=== PATIENT | male | born 1985 | race Caucasian/White ===

== ENCOUNTER 2020-10-24 00:58 | Inpatient (IN) ==
[2020-10-24] MEDS ORDERED: MULTI-VITAMIN INFUSION 10 ML, THIAMINE HCL 100 MG, FOLIC ACID 1 MG in SODIUM CHLORIDE 0... IV ONE (01:11)
[2020-10-24] MEDS ORDERED: LORazepam 1 MG/2 ML VIAL IV STA (01:11)
[2020-10-24] MEDS ORDERED: SODIUM CHLORIDE 0.9% 1000ML 1,000 ML IV ONE (01:11)
--- NOTE | 2020-10-24 01:19 | Emergency Department Note ---
Impression & Plan Pancreatitis, alcoholic, acute, Alcohol withdrawal, Abnormal LFTs, Conjunctivitis of left eye, Thrombocytopenia, Alcoholic hepatitis ED Provider Note Name: CHRISTIANA MULLEN Age: 35 Sex: M Arrives Via: Ambulance Informant: Patient, EMS ED Provider: Rayshawn Johnson MD Chief Complaint: Alcohol withdrawal Impression: Pancreatitis, Alcoholic, Acute Alcohol Withdrawal Abnormal LFTs Conjunctivitis of left eye Thrombocytopenia Alcoholic hepatitis Medical Decision Makin yr old male who admits ETOH use almost every day since 18 yrs old arrives with early DT with severe tremors and weakness. After 2nd dose Ativan IV much calmer. Given IV thiamine/folate/banana bag along with another 1 L NSS as he is clearly quite dehydrated. CT head obtained due to weakness, falls, etoh use which is negative. Labs with elevated lipase consistent with the vague LUQ ab dominal pain post prandial recently, though given miniaml TTP, no hypotension seems reasonable holding off on imaging for the moment. Labs with low platelets and elevated lfts consistent with alcoholic hepatitis and chronic drinking. No seizure/hallucinations while here. Given findings clearly will need to come in before rehab can be considered. He as quite significant conjunctivitis left eye with large corneal ulcer thus will start erythromycin ointment. Patient calm, cooperative and agrees with plan for hospitalization. Unclear etiology of ant/lat ST depressions with negative drop though may be alcoholic related, fortunately patient without sob, chest pain nor acs symptoms. Triage/Nursing Notes reviewed by Me Differentials:Infection, dehydration, metabolic abnormality, hypo/hyperglycemia, electrolyte disturbance, anemia, hypoxia, cardiac sources, intracerebral event, toxicologic, neurologic, as well as other pathologies. Vital Signs: reviewed and remarkable for HTN, Tachy Interventions: Saline lock, banana bag iv, nss bolus iv, ativan 1 mg IV Labs:Reviewed and remarkable for low plts, negative etoh, elevated lfts, elevated lipase Imaging:[facility] Radiologist interpretation reviewed by me: CT head no acute findings X ray results are stated below per my interpretation: Chest: 1 view: No infiltrate, no effusion, normal cardiac border. EKG:Per My Interpretation: Indication Weakness: NSR 96 bpm, qtc 490 with anterior and lateral ST depressions without ST elevation of nonspecific etiology. No previous for comparison. Cardiac/Tele Monitoring: Cardiac Monitoring: An Order was placed for continuous cardiac monitoring. The monitor shows a rate of 90 with a normal sinus rhythm. Consults:Dr Justin MCDONNELL Hospitalist Plan: Disposition:Hospitalization. Condition: Fair Prescriptions:none PDMP: n/a History of Present Illness:35 yr old male arrives for evaluation of alcohol withdrawal. Patient notes he has drank almost daily since he was 18. Can't remember the last time he tried going without alcohol for a day or two. Decided to quite 3 days ago and admits he has just been at his home since then. Gradually worsening shaking and weakness. Associated with nausea, vomiting and inability to eat without abdominal pain. Today unable to walk due to weakness and crawling around on the fall. He had had several falls due to etoh. Admits left forearm bruising from fall but no pain there. Called 911 when realized symptoms continuing to get worse. EMS arrived and noted patient shaking severely and given 1 mg IV Ativan by my medical command. Patient admits the last few weeks Left upper abdominal pain any time he eats though notes it is only moderate and goes aware after a few hours. Patient denies headache, neck pain, sob, chest pain, syncope, back pain, fevers, chills, bowel/bladder changes, rashes nor other symptoms. States pink eye left eye for several days and has not been using his contacts. States vision is blurry in eye. Denies trauma nor significant pain in eye. ROS: See above HPI for pertinent positives & negatives. A total of 10 systems reviewed and were otherwise negative. Past Medical History:Depression, Alcoholism Past Surgical History:No surgeries Family History:States healthy Social History:daily etoh, smokers tobacco and marijuana, no other drugs. 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 Dishevelled, unkempt, very tremulous EYES: Left eye severe watery conjunctivitis with large left corneal ulcer. Unremarkable pupils. ENT: Mucous membranes dry, no nasal congestion. NECK: No masses appreciated, nomeningismus, trachea is midline. RESPIRATORY: No dyspnea. Clear to auscultation and equal bilaterally. No wheeze, no rhonchi. CARDIOVASCULAR: Tachy.No murmurs, rubs, gallops appreciated. GASTROINTESTINAL: Abdomen soft, non-tender, no peritonitis.Bowel sounds positive.No masses appreciated. BACK: No midline tenderness, no CVA tenderness EXTREMITIES: Normal motion all extremities, no cyanosis, no edema. NEUROLOGIC: Very tremulous,Alert and oriented, no acute motor or sensory deficits, no focal weakness, cranial nerves grossly intact. SKIN: No rash, no jaundice, no diaphoresis. PSYCH: Appropriate GCS: 15 ED Course: Times/Reassessments: Vastly improved with fluids and IV ativan. Rayshawn Johnson MD Past Med/Surg History Medical History (Updated 10/24/20 @ 04:42 by Rayshawn Johnson MD) Depression Family History (Updated 09/20/19 @ 15:35 by Jose Luis Liang) Other Hypertension Social History Smoking Status: Current every day smoker Tobacco Type: Cigarettes Hx Alcohol Use: Yes Alcohol type: hard liquor Hx Substance Use: Yes Preferred Language: Vietnamese Time Broker Required: No Current Living Situation: Alone Feels Safe at Home: Yes Assistive Devices: None Allergies Allergies Allergy/AdvReac Type Severity Reaction Status Date / Time No Known Allergies Allergy Mild Unverified 10/24/20 01:37 Home Meds Home Medications Medication Instructions Recorded Confirmed No Known Home Medications 10/24/20 10/24/20 Results & Data (ED) Vital Signs Vital Signs - 24 hr 10/24/20 01:03 10/24/20 01:46 10/24/20 02:30 Temperature 36.7 C Temperature Source Oral Pulse Rate 98 H Pulse Rate [Apical] 91 H 91 H Respiratory Rate 18 22 18 Blood Pressure 162/112 H Blood Pressure [Right Arm] 146/115 H 138/89 Blood Pressure Mean 128 Blood Pressure Mean [Right Arm] 125 105 Pulse Oximetry 99 99 99 Oxygen Delivery Method Room Air Room Air Room Air Sepsis Recent Fever Within 48 Hours No Sepsis New/Unexplained Change in Mental Status N/A Sepsis Action Taken by Nursing No Action Required Laboratory Data Result diagrams: 10/24/20 01:31 10/24/20 01:31 Lab Results 10/24/20 10/24/20 10/24/20 Range/Units 01:31 01:31 01:31 WBC 5.07 (4.8-10.8) K/uL RBC 4.38 L (4.7-6.1) M/uL Hgb 14.5 (14.0-18.0) g/dL Hct 42.9 (42-52) % MCV 97.9 (80-100) fL MCH 33.1 (25-34) pg MCHC 33.8 (32-36) g/dL RDW Std Deviation 43.7 (36.4-46.3) fL RDW Coeff of Bradley 12.2 (11.5-14.5) % Plt Count 58 L (130-400) K/uL MPV 11.8 H (7.4-10.4) fL Immature Gran % (Auto) 0.2 % Neut % (Auto) 82.8 % Lymph % (Auto) 9.7 % [place] % (Auto) 7.3 % Eos % (Auto) 0.0 % Baso % (Auto) 0.0 % Neut # (Auto) 4.20 (1.4-6.5) K/uL Lymph # (Auto) 0.49 L (1.2-3.4) K/uL Rac[place] # (Auto) 0.37 (0.11-0.59) K/uL Eos # (Auto) 0.00 (0-0.5) K/uL Baso # (Auto) 0.00 (0-0.2) K/uL Immature Gran # (Auto) 0.01 (0.00-0.02) K/uL Platelet Estimate Decreased L (Normal) Giant Platelets 1+ PT 11.0 (9.0-12.0) Seconds INR 1.0 (0.9-1.1) Sodium 131 L (136-145) mmol/L Potassium 4.0 (3.5-5.1) mmol/L Chloride 95 L (98-107) mmol/L Carbon Dioxide 20 L (21-32) mmol/L Anion Gap 16.0 H (3-11) BUN 10 (7-18) mg/dl Creatinine 0.86 (0.6-1.4) mg/dl Est Cr Clr Drug Dosing 110.1 ml/min Est GFR ( Amer) 130.2 Est GFR (Non-Af Amer) 112.3 BUN/Creatinine Ratio 11.4 (10-20) Glucose 115 H (70-99) mg/dl Calcium 9.5 (8.5-10.1) mg/dl Magnesium 1.7 L (1.8-2.4) mg/dl Total Bilirubin 1.7 H (0.2-1) mg/dl Direct Bilirubin 0.8 H (0-0.2) mg/dl AST 97 H (15-37) U/L ALT 86 H (12-78) U/L Alkaline Phosphatase 84 (45-117) U/L Total Creatine Kinase 85 (39-308) U/L Troponin I < 0.015 (0-0.045) ng/ml Total Protein 8.2 (6.4-8.2) gm/dl Albumin 3.9 (3.4-5.0) gm/dl Lipase 3065 H (73-393) U/L Ethyl Alcohol mg/dL (0-3) mg/dl 10/24/20 Range/Units 01:31 WBC (4.8-10.8) K/uL RBC (4.7-6.1) M/uL Hgb (14.0-18.0) g/dL Hct (42-52) % MCV (80-100) fL MCH (25-34) pg MCHC (32-36) g/dL RDW Std Deviation (36.4-46.3) fL RDW Coeff of Bradley (11.5-14.5) % Plt Count (130-400) K/uL MPV (7.4-10.4) fL Immature Gran % (Auto) % Neut % (Auto) % Lymph % (Auto) % [place] % (Auto) % Eos % (Auto) % Baso % (Auto) % Neut # (Auto) (1.4-6.5) K/uL Lymph # (Auto) (1.2-3.4) K/uL Rac[place] # (Auto) (0.11-0.59) K/uL Eos # (Auto) (0-0.5) K/uL Baso # (Auto) (0-0.2) K/uL Immature Gran # (Auto) (0.00-0.02) K/uL Platelet Estimate (Normal) Giant Platelets PT (9.0-12.0) Seconds INR (0.9-1.1) Sodium (136-145) mmol/L Potassium (3.5-5.1) mmol/L Chloride (98-107) mmol/L Carbon Dioxide (21-32) mmol/L Anion Gap (3-11) BUN (7-18) mg/dl Creatinine (0.6-1.4) mg/dl Est Cr Clr Drug Dosing ml/min Est GFR ( Amer) Est GFR (Non-Af Amer) BUN/Creatinine Ratio (10-20) Glucose (70-99) mg/dl Calcium (8.5-10.1) mg/dl Magnesium (1.8-2.4) mg/dl Total Bilirubin (0.2-1) mg/dl Direct Bilirubin (0-0.2) mg/dl AST (15-37) U/L ALT (12-78) U/L Alkaline Phosphatase (45-117) U/L Total Creatine Kinase (39-308) U/L Troponin I (0-0.045) ng/ml Total Protein (6.4-8.2) gm/dl Albumin (3.4-5.0) gm/dl Lipase (73-393) U/L Ethyl Alcohol mg/dL < 3.0 (0-3) mg/dl Administered Medications Lorazepam (Ativan) 2 mg in 4 mls @ 4 mls/min IV UD PRN; Protocol PRN Reason: EtOH Withdrawl AWSS Score 8,9 Stop: 11/23/20 03:58 Last Admin: 10/24/20 04:32 Dose: 4 mls/min Documented by: [id number] Discontinued Medications Erythromycin (Erythromycin Op Oint 5 Mg/Gm 3.5 Gm Tube) 1 appln OP NOW ONE Stop: 10/24/20 01:38 Last Admin: 10/24/20 01:45 Dose: 12 appln Documented by: [id number] Sodium Chloride (Nss 1000ml) 1,000 mls @ 999 mls/hr IV .Q1H1M ONE Stop: 10/24/20 02:11 Last Infusion: 10/24/20 02:29 Dose: 0 mls/hr Documented by: [id number] Admin: 10/24/20 01:18 Dose: 999 mls/hr Documented by: [id number] Multivitamins 10 ml/ Thiamine HCl 100 mg/ Folic Acid 1 mg/Sodium Chloride 1,011.2 mls @ 1,011.2 mls/hr IV .Q1H ONE Stop: 10/24/20 02:10 Last Infusion: 10/24/20 02:45 Dose: 0 mls/hr Documented by: [id number] Admin: 10/24/20 01:45 Dose: 1,011.2 mls/hr Documented by: [id number] Lorazepam (Ativan) 1 mg in 2 mls @ 2 mls/min IV NOW STA Stop: 10/24/20 01:12 Last Admin: 10/24/20 01:19 Dose: 2 mls/min Documented by: [id number] Discharge Plan Visit Data Chief Complaint: Alcohol Withdrawal Stated Complaint: ALCOHOL WITHDRAWL ED Provider: Rayshawn Johnson Discharge Problem: Pancreatitis, alcoholic, acute, Alcohol withdrawal, Abnormal LFTs, Conjunctivitis of left eye, Thrombocytopenia, Alcoholic hepatitis Patient Disposition: Admitted As Inpatient Discharge Instructions Interventions: ED Discharge Assessment Last Done: 10/24/20 03:45 Discharge Problem: Pancreatitis, alcoholic, acute Qualifiers: Acute pancreatitis complication: no infection or necrosis Qualified Code(s): K85.20 - Alcohol induced acute pancreatitis without necrosis or infection Alcohol withdrawal Qualifiers: Complication of substance-induced condition: with delirium Qualified Code(s): F10.231 - Alcohol dependence with withdrawal delirium Conjunctivitis of left eye Qualifiers: Conjunctivitis type: acute Acute conjunctivitis type: bacterial Qualified Code(s): H10.32 - Unspecified acute conjunctivitis, left eye Alcoholic hepatitis Qualifiers: Ascites presence: without ascites Qualified Code(s): K70.10 - Alcoholic hep atitis without ascites
[2020-10-24] MEDS ORDERED: ERYTHROMYCIN OP OINT 5 MG/GM 3.5 GM TUBE OP ONE (01:37)
[2020-10-24 01:59] LABS: Alanine Aminotransferase 86 U/L (12-78); Albumin Level 3.9 gm/dl (3.4-5.0); Aspartate Aminotransferase 97 U/L (15-37); BUN Creatinine Ratio 11.4 (10-20); Bilirubin Direct 0.8 mg/dl (0-0.2); Blood Urea Nitrogen 10 mg/dl (7-18); Calcium 9.5 mg/dl (8.5-10.1); Carbon Dioxide 20 mmol/L (21-32); Chloride 95 mmol/L (98-107); Creatinine Clr Calc Pharmacy 110.1 ml/min; Est GFR (African American) 130.2; Est GFR (Non-African American) 112.3; Glucose 115 mg/dl (70-99); Magnesium 1.7 mg/dl (1.8-2.4); Sodium 131 mmol/L (136-145)
[2020-10-24 02:01] LABS: Hematocrit (blood only) 42.9 % (42-52); Hemoglobin 14.5 g/dL (14.0-18.0); Mean Corpuscular Hemoglobin 33.1 pg (25-34); Mean Corpuscular Hgb Conc 33.8 g/dL (32-36); Mean Corpuscular Volume 97.9 fL (80-100); Mean Platelet Volume 11.8 fL (7.4-10.4); Platelet Count 58 K/uL (130-400); RDW Coefficient of Variation 12.2 % (11.5-14.5); RDW Standard Deviation 43.7 fL (36.4-46.3); Red Blood Count 4.38 M/uL (4.7-6.1); White Blood Count 5.07 K/uL (4.8-10.8)
[2020-10-24 02:02] LABS: Alkaline Phosphatase 84 U/L (45-117); Bilirubin,Total 1.7 mg/dl (0.2-1); Creatine Kinase 85 U/L (39-308); Giant Platelets 1+; Immature Granulocytes # (auto) 0.01 K/uL (0.00-0.02); Immature Granulocytes % (auto) 0.2 %; Lipase 3065 U/L (73-393); Lymphocytes # (auto) 0.49 K/uL (1.2-3.4); Lymphocytes % (auto) 9.7 %; Monocytes # (auto) 0.37 K/uL (0.11-0.59); Monocytes % (auto) 7.3 %; Neutrophils % (auto) 82.8 %; Platelet Estimate Decreased (Normal); Total Protein 8.2 gm/dl (6.4-8.2); Troponin I < 0.015 ng/ml (0-0.045)
--- NOTE | 2020-10-24 02:41 | History & Physical Report ---
Date of Service October 24, 2020 Assessment & Plan (1) Alcohol withdrawal: Patient has been 3 days without alcohol intake, after drinking alcohol daily since age 18. AWSS protocol with gabapentin and IV Ativan. Regular diet as tolerated NSS + KCl 20 mEq at 150 mils per hour Patient feels that he does not need counseling at this time Present on Admission?: Yes (2) Abnormal LFTs: Follow LFTs serially. Acute versus chronic alcoholic hepatitis versus fatty liver. Depending upon the duration of elevation of LFTs, may consider doing ultrasound of liver. Present on Admission?: Yes (3) Pancreatitis, alcoholic, acute: Lipase 3065 upon admission. Follow serially in the a.m. If enzymes continue to worsen, or do not continue to receive, will do imaging at that time. Diet will be as tolerated. Present on Admission?: Yes History of Present Illness Chief Complaint: Patient presents to the emergency department with concerns regarding alcohol withdrawal, reporting that his last alcohol intake was 3 days ago, and had been drinking regularly since age 18 Primary Care Provider: NO PCP The patient is a 35-year-old male with a past medical history of alcohol dependency, who decided 3 days ago he would try to quit drinking alcohol on his own at home. He has been developing progressively worsening tremors, anxiety, palpitations and became concerned today, calling EMS, who brought him to the ED for further assessment. When he was reportedly found by EMS, he was having significant tremors, and was given Ativan 1 mg IM by command prior to arrival. Allergies Allergy/AdvReac Type Severity Reaction Status Date / Time No Known Allergies Allergy Mild Unverified 10/24/20 01:37 Home Medications Medication Instructions Recorded Confirmed Type No Known Home Medications 10/24/20 10/24/20 History Past Med/Surg History Medical History (Updated 10/24/20 @ 03:00 by Cesar Anderson MD) Depression Family History (Updated 09/20/19 @ 15:35 by Jose Luis Liang) Other Hypertension Social History Smoking Status: Current every day smoker Tobacco Type: Cigarettes Feels Safe at Home: Yes Review of Systems Review of Systems: The patient denies chest pain, palpitations, shortness of breath, dyspnea on exertion, cough, lower extremity swelling, sore throat, fevers, chills, sweats, vomiting, diarrhea , constipation, pelvic pain, blood in urine or stool, dysuria, urinary frequency or urgency, memory loss, loss of consciousness, rash, abnormal bruising or bleeding, imbalance, focal or generalized weakness, numbness or tingling in arms or legs, generalized arthralgias or myalgias, back or neck pain, or night sweats. The review of systems is otherwise negative other than for that already noted above, and at least 10 systems have been reviewed. Physical Exam Physical Exam: The patient is awake, alert and oriented 3, normocephalic and atraumatic, lying in bed and in no acute distress. HEENT--PERRL, EOMI, mucous membranes and oropharynx dry. Neck--supple. No JVD. No bruits. Thyroid normal, trachea midline, no adenopathy. Heart--normal S1 and S2. No murmurs, rubs or gallops. Lungs--clear bilaterally, no respiratory distress, no accessory muscle use. Abdomen--normal bowel sounds and soft. Nontender. Nondistended, no hernias or masses, no organomegaly. Extremities--no cyanosis or clubbing. No edema. Dermatologic--normal skin turgor, normal color, no abnormal lymph nodes, no rash. Neurologic--cranial nerves II through XII grossly intact. Rheumatologic--normal range of motion. Psychiatric--normal affect. Results & Data Results & Data ([facility]) Vital Signs (Past 12 Hours) Vital Signs Temp Pulse Pulse Resp BP BP Pulse Ox 10/24/20 01:46 91 H 22 146/115 H 99 10/24/20 01:03 98.1 F 98 H 18 162/112 H 99 Laboratory Results Laboratory Results WBC 5.07 K/uL (4.8-10.8) 10/24/20 01:31 RBC 4.38 M/uL (4.7-6.1) L 10/24/20 01:31 Hgb 14.5 g/dL (14.0-18.0) 10/24/20 01:31 Hct 42.9 % (42-52) 10/24/20 01:31 MCV 97.9 fL (80-100) 10/24/20 01:31 MCH 33.1 pg (25-34) 10/24/20 01: MCHC 33.8 g/dL (32-36) 10/24/20 01:31 RDW Std Deviation 43.7 fL (36.4-46.3) 10/24/20 01: RDW Coeff of Bradley 12.2 % (11.5-14.5) 10/24/20 01: Plt Count 58 K/uL (130-400) L 10/24/20 01: MPV 11.8 fL (7.4-10.4) H 10/24/20 01: Immature Gran % (Auto) 0.2 % 10/24/20 01: Neut % (Auto) 82.8 % 10/24/20 01: Lymph % (Auto) 9.7 % 10/24/20 01: Angelina % (Auto) 7.3 % 10/24/20 01: Eos % (Auto) 0.0 % 10/24/20 01: Baso % (Auto) 0.0 % 10/24/20 01: Neut # (Auto) 4.20 K/uL (1.4-6.5) 10/24/20 01: Lymph # (Auto) 0.49 K/uL (1.2-3.4) L 10/24/20 01:31 Angelina # (Auto) 0.37 K/uL (0.11-0.59) 10/24/20 01: Eos # (Auto) 0.00 K/uL (0-0.5) 10/24/20 01: Baso # (Auto) 0.00 K/uL (0-0.2) 10/24/20 01: Immature Gran # (Auto) 0.01 K/uL (0.00-0.02) 10/24/20 01: Platelet Estimate Decreased (Normal) L 10/24/20 01: Giant Platelets 1+ 10/24/20 01: PT 11.0 Seconds (9.0-12.0) 10/24/20 01: INR 1.0 (0.9-1.1) 10/24/20 01: Sodium 131 mmol/L (136-145) L 10/24/20 01: Potassium 4.0 mmol/L (3.5-5.1) 10/24/20 01: Chloride 95 mmol/L (98-107) L 10/24/20 01: Carbon Dioxide 20 mmol/L (21-32) L 10/24/20 01:31 Anion Gap 16.0 (3-11) H 10/24/20 01:31 BUN 10 mg/dl (7-18) 10/24/20 01:31 Creatinine 0.86 mg/dl (0.6-1.4) 10/24/20 01:31 Est Cr Clr Drug Dosing 110.1 ml/min 10/24/20 01:31 Est GFR ( Amer) 130.2 10/24/20 01:31 Est GFR (Non-Af Amer) 112.3 10/24/20 01:31 BUN/Creatinine Ratio 11.4 (10-20) 10/24/20 01:31 Glucose 115 mg/dl (70-99) H 10/24/20 01:31 Calcium 9.5 mg/dl (8.5-10.1) 10/24/20 01:31 Magnesium 1.7 mg/dl (1.8-2.4) L 10/24/20 01:31 Total Bilirubin 1.7 mg/dl (0.2-1) H 10/24/20 01:31 Direct Bilirubin 0.8 mg/dl (0-0.2) H 10/24/20 01:31 AST 97 U/L (15-37) H 10/24/20 01:31 ALT 86 U/L (12-78) H 10/24/20 01:31 Alkaline Phosphatase 84 U/L (45-117) 10/24/20 01:31 Total Creatine Kinase 85 U/L (39-308) 10/24/20 01:31 Troponin I < 0.015 ng/ml (0-0.045) 10/24/20 01:31 Total Protein 8.2 gm/dl (6.4-8.2) 10/24/20 01:31 Albumin 3.9 gm/dl (3.4-5.0) 10/24/20 01:31 Lipase 3065 U/L (73-393) H 10/24/20 01:31 Ethyl Alcohol mg/dL < 3.0 mg/dl (0-3) 10/24/20 01:31 SARS-CoV-2 Ag (Rapid) Negative (Negative) 10/24/20 Unknown Diagnostic Findings [facility] Patient: CHRISTIANA MULLEN Dl (Male) : 85 Status: ER Date: 10/24/20 01:43 Room #: History: ETOH WITHDRAWL, TREMORS, FELL HIT HEAD Slices: 58 Priors: Tech: Camilo Palmer @ [phone] Exams: CT HEAD Contrast: Accession Numbers: [id number] Preliminary Findings Only See Final Report For Complete Findings CT HEAD: No ICH, mass effect or edema. No skull fracture. Radiologist: Frankie Carl MD Study ready at 01:46 and initial results transmitted at 01:54 *This report constitutes a preliminary interpretation only. Non-acute findings felt to be unrelated to the clinical presentation may not be discussed in this report. The study will be interpreted and a final report will be generated by the local Radiologist the following shift. To reach the hospital radiology department call [phone]. If a discrepancy is found between the preliminary and final interpretations of this study, please notify us via our Client Portal at [email or web address].You can also fax this report with a description of the discrepancy, or include the final report, to our daytime fax number [phone].If faxing, please indicate the severity of discrepancy using one of the following categories: [ ] 1 - Agree/Informational [ ] 2 - Unlikely to Affect Management [ ] 3 - Possible Eventual Change of Management [ ] 4 - Probable Immediate Change of Management For all other patient related information, please fax us at [phone]. [id number] Code Status & VTE Plan Code Status Full code VTE Prophylaxis Plan VTE Prophylaxis will be ordered: Yes PG Care Time/CCT Total # of Minutes Spent Total Time Spent with Patient: Total time spent is greater than 50% in coordination of care (as documented) at patient's floor/unit and/or counseling patient: Coding Level of Care Code 98518 Initial Inpt Care Lvl 2 Diagnoses Alcohol withdrawal F10.239 Abnormal LFTs R94.5 Pancreatitis, alcoholic, acute K85.20
[2020-10-24] MEDS ORDERED: GABAPENTIN 1200MG ALCOHOL WITHDRAWAL LOAD PO STA (03:59)
[2020-10-24] MEDS ORDERED: LORazepam 3 MG/6 ML VIAL IV PRN (03:59)
[2020-10-24] MEDS ORDERED: ONDANSETRON INJ 2 MG/ML 2 ML VIAL IV PRN (03:59)
[2020-10-24] MEDS ORDERED: ATIVAN IV ALCOHOL WITHDRAWL IV PRN (03:59)
[2020-10-24] MEDS: LORazepam 2 MG/4 ML VIAL IV PRN ×2 (04:32→19:08)
[2020-10-24] MEDS: NSS + 20MEQ KCL 20 MEQ/1,000 ML BAG IV SCH ×3 (05:03→18:59)
[2020-10-24] MEDS ORDERED: GABAPENTIN 600 MG TAB PO ONE (06:00)
[2020-10-24 06:10] LABS: Appearance Urine Clear (Clear); Bacteria Urine Automated Negative (Negative); Blood Urine Negative (Negative); Color Urine Orange; Epithelial Cell Urine Auto 20-30 /lpf (0-5); Glucose Urine UA Negative (Negative); Ketones Urine 4+ (Negative); Leukocyte Esterase Urine Trace (Negative); Nitrite Urine Negative (Negative); Protein Urine 2+ (Negative); RBC Urine Automated 0-4 /hpf (0-4); Specific Gravity Urine 1.023 (1.000-1.030); Urobilinogen Urine Positive (Negative)
[2020-10-24 06:14] LABS: Bilirubin Urine Negative (Negative); Ictotest Urine Negative (Negative)
[2020-10-24] MEDS: LORazepam 1 MG/2 ML VIAL IV PRN ×2 (06:16→14:02)
--- NOTE | 2020-10-24 06:42 | CT Scan Report ---
CT head/brain wo con CLINICAL HISTORY: 35 years-old Male with etoh, fall, unable to walk. Acute head injury status post f all TECHNIQUE: Multiple axial CT images of the head were obtained without contrast. A dose lowering tech nique was utilized adhering to the principles of ALARA. CT DOSE: 537.48 mGy.cm COMPARISON: None. FINDINGS: No acute intracranial hemorrhage, midline shift, intracranial mass, hydrocephalus, territorial ischem ia or abnormal extra-axial collection. The calvarium is intact. Note is made of a metopic suture. The paranasal sinuses, mastoid air cells, and middle ear cavities are clear. IMPRESSION: No acute intracranial abnormality or calvarial fracture. ACT 112: Negative or not required by law. The above report was generated using voice recognition software. It may contain grammatical, syntax o r spelling errors. Electronically signed by: Ferdinand Perrin M.D. 10/24/2020 6:41 AM
--- NOTE | 2020-10-24 07:27 | XRay Report ---
XR chest 1V portable CLINICAL HISTORY: Trauma. Intoxication. COMPARISON STUDY: No previous studies for comparison. FINDINGS: The cardiac and mediastinal contours are normal. There is no evidence of focal pulmonary co nsolidation. There is no evidence of failure. No pleural effusions are visualized.[No pneumothorax is visualized IMPRESSION: No active disease in the chest. ACT 112: Negative or not required by law. Electronically signed by: Bao Geller M.D. 10/24/2020 7:25 AM
[2020-10-24] MEDS: THIAMINE HCL 100 MG TAB PO SCH (07:56)
[2020-10-24] MEDS: FOLIC ACID 1 MG TAB PO SCH (07:56)
[2020-10-24] MEDS: NEPHROCAPS PO SCH (07:56)
[2020-10-24] MEDS: HEPARIN SOD 5,000 UNIT/0.5 ML VIAL SQ SCH ×2 (07:57→20:07)
[2020-10-24] MEDS ORDERED: SODIUM PHOSPHATE 3 MMOL/1 ML INFUSION IV STA (08:57)
--- NOTE | 2020-10-24 09:07 | Hospitalist Progress Note ---
Date of Service October 24, 2020 Assessment & Plan (1) Alcohol withdrawal: Patient has been 3 days without alcohol intake, after drinking alcohol daily since age 18. AWSS protocol with gabapentin and IV Ativan. started scheduled librium due to agitation Regular diet as tolerated NSS + KCl 20 mEq at 150 mils per hour Patient feels that he does not need counseling at this time (2) Abnormal LFTs: Follow LFTs serially. Acute versus chronic alcoholic hepatitis versus fatty liver. Depending upon the duration of elevation of LFTs, may consider doing ultrasound of liver. (3) Pancreatitis, alcoholic, acute: Lipase 3065 upon admission. Follow serially If enzymes continue to worsen, or do not continue to receive, will do imaging at that time. Diet will be as tolerated. Admission and Anticipated Discharge Date Admission Date: October 24, 2020 Review of Systems Review of Systems: Unobtainable due to reduced consciousness Physical Exam Physical Exam: The patient appeared well developed Vital signs as documented. Lungs are clear but diminished appear unlabored Cardiac exam, Rhythm is regular.. No murmurs, rubs or gallops. Abdominal exam reveals normal bowel sounds, soft Extremities are nonedematous and both pedal pulses are normal. Neurologic exam is sedated Skin is without bruises or rashes Psychologically is without concerns for substance abuse Results & Data Results & Data ([facility]) Vital Signs (Past 12 Hours) Vital Signs Temp Pulse Pulse Pulse Resp BP BP 10/24/20 07:59 99.0 F 103 H 18 146/92 H 10/24/20 07:32 98 H 10/24/20 06:10 98.8 F 96 H 20 138/104 H 10/24/20 04:05 100 H 10/24/20 04:03 98.2 F 104 H 22 10/24/20 03:59 10/24/20 03:39 106 H 18 10/24/20 02:30 91 H 18 10/24/20 01:46 91 H 22 10/24/20 01:03 98.1 F 98 H 18 162/112 H BP Pulse Ox Pulse Ox 10/24/20 07:59 147/110 H 98 10/24/20 07:32 10/24/20 06:10 98 10/24/20 04:05 10/24/20 04:03 154/106 H 99 10/24/20 03:59 99 11/30/20 03:39 143/100 H 100 11/30/20 02:30 138/89 99 10/24/20 01:46 146/115 H 99 10/24/20 01:03 99 PG Care Time/CCT Total # of Minutes Spent Total Time Spent with Patient: Total time spent is greater than 50% in coordination of care (as documented) at patient's floor/unit and/or counseling patient: Coding Level of Care Code None Diagnoses Alcohol withdrawal F10.231 Complication of substance-induced condition: with delirium Abnormal LFTs R94.5 Pancreatitis, alcoholic, acute K85.20 Acute pancreatitis complication: no infection or necrosis (1) Alcohol withdrawal Complication of substance-induced condition: with delirium Qualified Code(s): F10.231 - Alcohol dependence with withdrawal delirium (2) Pancreatitis, alcoholic, acute Acute pancreatitis complication: no infection or necrosis Qualified Code(s): K85.20 - Alcohol induced acute pancreatitis without necrosis or infection
[2020-10-24] MEDS ORDERED: MAGNESIUM SULFATE / D5W 1 GM/100 ML BAG IV ONE (09:30)
[2020-10-24] MEDS ORDERED: SODIUM PHOSPHATE 21 MMOL in SODIUM CHLORIDE 0.9% 500 ML IV ONE (09:30)
--- NOTE | 2020-10-24 11:05 | Electrocardiogram Report ---
Test Reason : Blood Pressure : / mmHG Vent. Rate : 096 BPM Atrial Rate : 096 BPM P-R Int : 108 ms QRS Dur : 082 ms QT Int : 388 ms P-R-T Axes : 053 056 087 degrees QTc Int : 490 ms Poor data quality, interpretation may be adversely affected Sinus rhythm with sinus arrhythmia T wave abnormality, consider lateral ischemia Abnormal ECG No previous ECGs available Confirmed by Ken Adkins ([id number]) on 10/24/2020 11:04:56 AM Referred By: REFERRED SELF Confirmed By:Inocencio Adkins
[2020-10-24] MEDS: GABAPENTIN 600 MG TAB PO SCH ×2 (12:18→18:59)
[2020-10-24] MEDS: chlordiazePOXIDE HCl 25 MG CAP PO SCH ×2 (14:02→20:07)
[2020-10-24] MEDS ORDERED: GABAPENTIN 600 MG TAB PO SCH (20:00)
[2020-10-25] MEDS: NSS + 20MEQ KCL 20 MEQ/1,000 ML BAG IV SCH ×3 (00:48→13:58)
[2020-10-25] MEDS: LORazepam 2 MG/4 ML VIAL IV PRN (00:49)
[2020-10-25] MEDS: GABAPENTIN 600 MG TAB PO SCH ×3 (01:00→18:02)
[2020-10-25 07:53] LABS: Hematocrit (blood only) 39.3 % (42-52); Hemoglobin 12.8 g/dL (14.0-18.0); Mean Corpuscular Hemoglobin 32.2 pg (25-34); Mean Corpuscular Hgb Conc 32.6 g/dL (32-36); Mean Corpuscular Volume 98.7 fL (80-100); RDW Coefficient of Variation 12.3 % (11.5-14.5); RDW Standard Deviation 44.6 fL (36.4-46.3); Red Blood Count 3.98 M/uL (4.7-6.1); White Blood Count 3.58 K/uL (4.8-10.8)
[2020-10-25 07:54] LABS: Mean Platelet Volume 11.7 fL (7.4-10.4); Platelet Count 43 K/uL (130-400)
[2020-10-25 08:07] LABS: INR 1.1 (0.9-1.1); Prothrombin Time 11.1 Seconds (9.0-12.0)
[2020-10-25 08:14] LABS: Basophils # (auto) 0.01 K/uL (0-0.2); Basophils % (auto) 0.3 %; Eosinophils # (auto) 0.04 K/uL (0-0.5); Eosinophils % (auto) 1.1 %; Immature Granulocytes # (auto) 0.01 K/uL (0.00-0.02); Immature Granulocytes % (auto) 0.3 %; Lymphocytes # (auto) 0.94 K/uL (1.2-3.4); Lymphocytes % (auto) 26.3 %; Monocytes # (auto) 0.36 K/uL (0.11-0.59); Monocytes % (auto) 10.1 %; Neutrophils # (auto) 2.22 K/uL (1.4-6.5); Neutrophils % (auto) 61.9 %
[2020-10-25] MEDS: FOLIC ACID 1 MG TAB PO SCH (08:14)
[2020-10-25] MEDS: NEPHROCAPS PO SCH (08:14)
[2020-10-25] MEDS: THIAMINE HCL 100 MG TAB PO SCH (08:14)
[2020-10-25] MEDS: HEPARIN SOD 5,000 UNIT/0.5 ML VIAL SQ SCH ×2 (08:15→20:50)
[2020-10-25] MEDS: chlordiazePOXIDE HCl 25 MG CAP PO SCH ×3 (08:17→20:50)
[2020-10-25] MEDS: LORazepam 1 MG/2 ML VIAL IV PRN ×2 (08:38→20:23)
[2020-10-25 08:41] LABS: Alanine Aminotransferase 73 U/L (12-78); Albumin Globulin Ratio 0.9 (0.9-2); Alkaline Phosphatase 66 U/L (45-117); Aspartate Aminotransferase 139 U/L (15-37); BUN Creatinine Ratio 9.2 (10-20); Bilirubin,Total 1.1 mg/dl (0.2-1); Blood Urea Nitrogen 5 mg/dl (7-18); Carbon Dioxide 21 mmol/L (21-32); Chloride 106 mmol/L (98-107); Creatinine Clr Calc Pharmacy 184.6 ml/min; Est GFR (African American) > 150.0; Est GFR (Non-African American) 137.1; Globulin 3.3 gm/dl (2.5-4.0); Glucose 58 mg/dl (70-99); Lipase 3995 U/L (73-393); Magnesium 1.7 mg/dl (1.8-2.4); Potassium 3.5 mmol/L (3.5-5.1); Total Protein 6.3 gm/dl (6.4-8.2)
[2020-10-25] MEDS ORDERED: chlordiazePOXIDE HCl 25 MG CAP PO ONE (09:25)
[2020-10-25 10:45] LABS: Sodium 138 mmol/L (136-145)
[2020-10-25] MEDS: GATIFLOXACIN 0.5% OP SOLN 2.5 ML BTL OP SCH ×4 (15:58→22:39)
--- NOTE | 2020-10-25 16:44 | Hospitalist Progress Note ---
Date of Service October 25, 2020 Assessment & Plan (1) Alcohol withdrawal: Patient with significant alcohol withdrawal now and scheduled Librium 50 3 times daily per gabapentin protocol and the MARILEE S Ativan as needed. I did have a discussion with the patient and he said if he can continue to drink he does not make lots of sense to detox him as he just returned to drinking any did voice a desire to stop using alcohol and that he would not leave AMA. There was some concern is a nursing staff thought he was looking up the phone number for [employer] on his phone. NSS + KCl 20 mEq at 150 mils per hour we will discontinue IV fluids at this time as patient is taking p.o. (2) Abnormal LFTs: Follow LFTs no significant change Acute versus chronic alcoholic hepatitis versus fatty liver. Depending upon the duration of elevation of LFTs, may consider doing ultrasound of liver. (3) Pancreatitis, alcoholic, acute: Lipase 3065 upon admission. Follow serially If enzymes continue to worsen, or do not continue to receive, will do imaging at that time. Diet will be as tolerated. (4) Conjunctivitis of left eye: Significant left eye conjunctivitis is significant concern for corneal ulceration, the patient will be placed on gatifloxacin and vancomycin [id number] every 1 hour with surveillance. He will definitely need ophthalmological follow-up in the future Admission and Anticipated Discharge Date Admission Date: October 24, 2020 Subjective Patient once again required escalation of his scheduled Librium dosing now at 50 3 times daily plus gabapentin tapering dose. He is having intermittent but more controlled episodes of agitation. He was having significant conjunctivitis in his cornea looks to be opaque. I personally spoke with Dr. Chadwick on-call ophthalmology and we amended his antibiotic treatment for conjunctivitis with possible corneal ulceration. Dr. Chadwick is very concerned and wants an update further direct his care Review of Systems Review of Systems: Mild distress and fatigue no headache, does complain of some blurry vision out of his left eye no speech or swallowing issues no chest pain, pressure or palpitations no shortness of breath, cough or wheezes no abdominal pain, nausea or vomiting, diarrhea or constipation no dysuria, hematuria or frequency no focal joint pain or swelling no back pain, CVA tenderness or radicular pain no bruising, bleeding or rashes no focal signs of weakness or numbness is of some altered sensation likely from his sedation medications Has bouts of anxiety when not sedated Physical Exam Physical Exam: The patient appeared well developed Vital signs as documented. Left conjunctiva is markedly erythematous there is no significant matting or purulent discharge his cornea is opaque with a linear 1 x 3 mm abnormality in the upper third of the cornea Lungs are clear but diminished appear unlabored Cardiac exam, tachycardic at times.. No murmurs, rubs or gallops. Abdominal exam reveals normal bowel sounds, soft Extremities are nonedematous and both pedal pulses are normal. Neurologic exam is sedated but able to speak although altered Skin is without bruises or rashes Psychologically is without concerns for substance abuse Results & Data Results & Data ([facility]) Vital Signs (Past 12 Hours) Vital Signs Temp Pulse Pulse Resp BP BP Pulse Ox 10/25/20 15:04 99 H 10/25/20 15:00 98.4 F 113 H 18 135/92 95 10/25/20 11:00 99.5 F 115 H 18 134/97 98 10/25/20 08:20 98.4 F 135 H 20 143/106 H 97 10/25/20 07:14 100 H 10/25/20 07:00 98.1 F 118 H 18 136/96 98 PG Care Time/CCT Total # of Minutes Spent Total Time Spent with Patient: Total time spent is greater than 50% in coordination of care (as documented) at patient's floor/unit and/or counseling patient: Coding Level of Care Code 76043 Subseq Hosp Care Lvl 3 Diagnoses Alcohol withdrawal F10.231 Complication of substance-induced condition: with delirium Abnormal LFTs R94.5 Pancreatitis, alcoholic, acute K85.20 Acute pancreatitis complication: no infection or necrosis Conjunctivitis of left eye H10.32 Acute conjunctivitis type: bacterial Conjunctivitis type: acute (1) Alcohol withdrawal Complication of substance-induced condition: with delirium Qualified Code(s): F10.231 - Alcohol dependence with withdrawal delirium (2) Pancreatitis, alcoholic, acute Acute pancreatitis complication: no infection or necrosis Qualified Code(s): K85.20 - Alcohol induced acute pancreatitis without necrosis or infection (3) Conjunctivitis of left eye Acute conjunctivitis type: bacterial Conjunctivitis type: acute Qualified Code(s): H10.32 - Unspecified acute conjunctivitis, left eye
[2020-10-25] MEDS: VANCOMYCIN 25MG/ML FORTIFIED OPH DROPS OP SCH ×4 (16:58→23:28)
[2020-10-25] MEDS ORDERED: VANCOMYCIN 25MG/ML FORTIFIED OPH DROPS OP SCH (17:00)
[2020-10-26] MEDS: LORazepam 2 MG/4 ML VIAL IV PRN ×2 (00:10→05:54)
[2020-10-26] MEDS: GATIFLOXACIN 0.5% OP SOLN 2.5 ML BTL OP SCH ×13 (00:10→23:51)
[2020-10-26] MEDS: VANCOMYCIN 25MG/ML FORTIFIED OPH DROPS OP SCH ×12 (01:07→23:36)
[2020-10-26] MEDS: GABAPENTIN 600 MG TAB PO SCH ×2 (05:55→18:22)
[2020-10-26] MEDS: THIAMINE HCL 100 MG TAB PO SCH (08:11)
[2020-10-26] MEDS: FOLIC ACID 1 MG TAB PO SCH (08:11)
[2020-10-26] MEDS: NEPHROCAPS PO SCH (08:11)
[2020-10-26] MEDS: HEPARIN SOD 5,000 UNIT/0.5 ML VIAL SQ SCH ×2 (08:12→21:44)
[2020-10-26] MEDS: chlordiazePOXIDE HCl 25 MG CAP PO SCH ×3 (08:16→21:25)
[2020-10-26 09:09] LABS: Hematocrit (blood only) 38.3 % (42-52); Hemoglobin 12.8 g/dL (14.0-18.0); Mean Corpuscular Hemoglobin 32.5 pg (25-34); Mean Corpuscular Hgb Conc 33.4 g/dL (32-36); Mean Corpuscular Volume 97.2 fL (80-100); Mean Platelet Volume 12.2 fL (7.4-10.4); Platelet Count 56 K/uL (130-400); RDW Coefficient of Variation 12.1 % (11.5-14.5); RDW Standard Deviation 43.5 fL (36.4-46.3); Red Blood Count 3.94 M/uL (4.7-6.1)
[2020-10-26 09:13] LABS: INR 1.1 (0.9-1.1); Prothrombin Time 11.1 Seconds (9.0-12.0)
[2020-10-26 09:20] LABS: BUN Creatinine Ratio 6.5 (10-20); Calcium 9.8 mg/dl (8.5-10.1); Est GFR (African American) 144.3; Est GFR (Non-African American) 124.5; Magnesium 1.5 mg/dl (1.8-2.4); Potassium 3.2 mmol/L (3.5-5.1)
[2020-10-26 09:23] LABS: Albumin Globulin Ratio 0.9 (0.9-2); Bilirubin,Total 0.9 mg/dl (0.2-1); Globulin 3.5 gm/dl (2.5-4.0); Total Protein 6.5 gm/dl (6.4-8.2)
[2020-10-26 09:31] LABS: Basophils # (auto) 0.01 K/uL (0-0.2); Basophils % (auto) 0.3 %; Eosinophils # (auto) 0.05 K/uL (0-0.5); Eosinophils % (auto) 1.4 %; Immature Granulocytes # (auto) 0.01 K/uL (0.00-0.02); Immature Granulocytes % (auto) 0.3 %; Lymphocytes # (auto) 1.04 K/uL (1.2-3.4); Lymphocytes % (auto) 28.1 %; Monocytes # (auto) 0.37 K/uL (0.11-0.59); Neutrophils # (auto) 2.22 K/uL (1.4-6.5); Neutrophils % (auto) 59.9 %
--- NOTE | 2020-10-26 15:27 | Ultrasound Report ---
ULTRASOUND RIGHT UPPER QUADRANT ABDOMEN CLINICAL HISTORY: Clinical concern for pancreatic pseudocyst. COMPARISON STUDY: No priors. TECHNIQUE: Real-time, grayscale, and color flow sonography of the right upper quadrant of the abdomen was performed. Images are reviewed in the transverse and longitudinal planes. FINDINGS: Liver: The liver is enlarged and demonstrates heterogeneously increased echotexture consistent with h epatic steatosis. There is no intrahepatic biliary ductal dilatation. The main portal vein is patent. Gallbladder: The gallbladder is normal in appearance. No gallstones are identified. There is no gallb ladder wall thickening or pericholecystic fluid. A sonographic Beaulieu's sign is reportedly absent. Th e common bile duct measures up to 0.3 cm in diameter. Pancreas: Visualized portions of the pancreatic head and body are normal in appearance. The splenic v ein is patent. No peripancreatic fluid collection is identified. Right kidney: Survey images of the right kidney demonstrate normal size and echotexture. There is no hydronephrosis. Ascites: None. IMPRESSION: 1. Unremarkable sonographic assessment of the pancreas. No peripancreatic fluid collection is seen to suggest pseudocyst as clinically queried. 2. Hepatomegaly and hepatic steatosis. 3. No gallstones are identified. ACT 112: Negative or not required by law. Electronically signed by: Regan Quevedo M.D. 10/26/2020 3:25 PM
--- NOTE | 2020-10-26 17:01 | Hospitalist Progress Note ---
Date of Service October 26, 2020 Assessment & Plan (1) Alcohol withdrawal: Patient with significant alcohol withdrawal now and scheduled Librium 50 3 times daily per gabapentin protocol and the MARILEE S Ativan as needed. I did have a discussion with the patient and he said if he can continue to drink he does not make lots of sense to detox him as he just returned to drinking any did voice a desire to stop using alcohol an complaints of leg tightness mild swelling, will check doppler, is on heparin (2) Abnormal LFTs: continue with mild elevation Acute versus chronic alcoholic hepatitis versus fatty liver. Depending upon the duration of elevation of LFTs, m (3) Pancreatitis, alcoholic, acute: lipase remains elevated, us pancreas is unremarkable for inflammation or cyst, Pt does not want to be npo and accepts risks of feeding with pancreatitis, will agree to clear liquids (4) Conjunctivitis of left eye: Significant left eye conjunctivitis is significant concern for corneal ulceration, the patient will be placed on gatifloxacin and vancomycin [id number] every 1 hour with surveillance. He will definitely need ophthalmological follow-up in the future (5) Leg pain: will order doppler to r/o dvt is on heparin Admission and Anticipated Discharge Date Admission Date: October 24, 2020 Subjective Patient now with better symptom control with scheduled Librium dosing now at 50 3 times daily plus gabapentin tapering dose. He was having significant conjunctivitis in his cornea looks to be opaque. I personally spoke with Dr. Chadwick on-call ophthalmology and we amended his antib iotic treatment for conjunctivitis with possible corneal ulceration. Dr. Chadwick is very concerned and wants an update further direct his care, pt has some improvement on 10/26 pt has no abdominal pain complaints to go with his elevated lipase, wants to eat he now is also returned to bilateral leg tightness will get doppler Review of Systems Review of Systems: Mild distress and fatigue no headache, does, continues with blurry vision out of his left eye no speech or swallowing issues no chest pain, pressure or palpitations no shortness of breath, cough or wheezes NO abdominal pain, nausea or vomiting, diarrhea or constipation no dysuria, hematuria or frequency no focal joint pain or swelling no back pain, CVA tenderness or radicular pain no bruising, bleeding or rashes no focal signs of weakness or numbness is of some altered sensation likely from his sedation medications Has bouts of anxiety when not sedated Physical Exam Physical Exam: The patient appeared well developed Vital signs as documented. Left conjunctiva is markedly erythematous there is no significant matting or purulent discharge his cornea is opaque with a linear 1 x 3 mm abnormality in the upper third of the cornea Lungs are clear but diminished appear unlabored Cardiac exam, tachycardic at times.. No murmurs, rubs or gallops. Abdominal exam reveals normal bowel sounds, soft no real tenderness Extremities are nonedematous and both pedal pulses are normal. Neurologic exam is sedated but able to speak although altered Skin is without bruises or rashes Psychologically is without concerns for substance abuse Results & Data Results & Data ([facility]) Vital Signs (Past 12 Hours) Vital Signs Temp Pulse Pulse Resp BP BP Pulse Ox 10/26/20 15:48 98.1 F 106 H 18 121/86 97 10/26/20 12:05 98.2 F 102 H 20 128/91 135/92 98 10/26/20 08:30 109 H 10/26/20 07:45 98.1 F 95 H 20 128/89 96 PG Care Time/CCT Total # of Minutes Spent Total Time Spent with Patient: Total time spent is greater than 50% in coordination of care (as documented) at patient's floor/unit and/or counseling patient: Coding Level of Care Code 88732 Subseq Hosp Care Lvl 3 Diagnoses Alcohol withdrawal F10.231 Complication of substance-induced condition: with delirium Abnormal LFTs R94.5 Pancreatitis, alcoholic, acute K85.20 Acute pancreatitis complication: no infection or necrosis Conjunctivitis of left eye H10.32 Acute conjunctivitis type: bacterial Conjunctivitis type: acute Leg pain M79.606 (1) Alcohol withdrawal Complication of substance-induced condition: with delirium Qualified Code(s): F10.231 - Alcohol dependence with withdrawal delirium (2) Pancreatitis, alcoholic, acute Acute pancreatitis complication: no infection or necrosis Qualified Code(s): K85.20 - Alcohol induced acute pancreatitis without necrosis or infection (3) Conjunctivitis of left eye Acute conjunctivitis type: bacterial Conjunctivitis type: acute Qualified Code(s): H10.32 - Unspecified acute conjunctivitis, left eye
[2020-10-26] MEDS ORDERED: POTASSIUM CHLORIDE 10 MEQ / 100ML WTR IV STA (17:06)
--- NOTE | 2020-10-26 17:48 | Ultrasound Report ---
ULTRASOUND BILATERAL LOWER EXTREMITY VENOUS CLINICAL HISTORY: Lower extremity weakness. COMPARISON STUDY: No priors. TECHNIQUE: Real-time, grayscale, and color Doppler sonography of the deep veins of the right and left lower extremity was performed from the inguinal crease to the calf. Compression and augmentation wer e utilized. FINDINGS: There is no sonographic evidence of deep venous thrombosis identified in the right or left lower extremity. The common femoral, superficial femoral, and popliteal veins are patent and normally compressible bilaterally. The greater saphenous vein and the profunda femoris vein at the junction w ith the common femoral vein are clear in both legs. The visualized calf veins are patent bilaterally. IMPRESSION: There is no sonographic evidence of deep venous thrombosis identified in the right or lef t lower extremity. ACT 112: Negative or not required by law. Electronically signed by: Regan Quevedo M.D. 10/26/2020 5:47 PM
[2020-10-26] MEDS: POTASSIUM CHLORIDE / WTR 10 MEQ/100 ML PLCT IV SCH ×3 (18:02→22:36)
[2020-10-26] MEDS ORDERED: LORazepam 0.5 MG/1 ML VIAL IV PRN (18:52)
[2020-10-26] MEDS ORDERED: LORazepam 1 MG/2 ML VIAL IV PRN (18:54)
[2020-10-26] MEDS: POTASSIUM CHLORIDE CRTAB 20 MEQ TABCR PO SCH (21:20)
[2020-10-27] MEDS: VANCOMYCIN 25MG/ML FORTIFIED OPH DROPS OP SCH ×11 (00:46→22:21)
[2020-10-27] MEDS: GATIFLOXACIN 0.5% OP SOLN 2.5 ML BTL OP SCH ×11 (02:15→22:21)
[2020-10-27 07:51] LABS: Alanine Aminotransferase 81 U/L (12-78); Albumin Globulin Ratio 0.9 (0.9-2); Alkaline Phosphatase 63 U/L (45-117); Aspartate Aminotransferase 80 U/L (15-37); BUN Creatinine Ratio 7.2 (10-20); Bilirubin,Total 0.9 mg/dl (0.2-1); Blood Urea Nitrogen 4 mg/dl (7-18); Calcium 9.4 mg/dl (8.5-10.1); Carbon Dioxide 27 mmol/L (21-32); Chloride 108 mmol/L (98-107); Est GFR (African American) > 150.0; Est GFR (Non-African American) 137.1; Globulin 3.4 gm/dl (2.5-4.0); Glucose 86 mg/dl (70-99); Lipase 2927 U/L (73-393); Magnesium 1.6 mg/dl (1.8-2.4); Potassium 3.7 mmol/L (3.5-5.1); Sodium 138 mmol/L (136-145); Total Protein 6.4 gm/dl (6.4-8.2)
[2020-10-27] MEDS: POTASSIUM CHLORIDE CRTAB 20 MEQ TABCR PO SCH ×2 (08:11→20:21)
[2020-10-27] MEDS: HEPARIN SOD 5,000 UNIT/0.5 ML VIAL SQ SCH ×2 (08:11→20:22)
[2020-10-27] MEDS: THIAMINE HCL 100 MG TAB PO SCH (08:11)
[2020-10-27] MEDS: NEPHROCAPS PO SCH (08:12)
[2020-10-27] MEDS: FOLIC ACID 1 MG TAB PO SCH (08:12)
[2020-10-27] MEDS: chlordiazePOXIDE HCl 25 MG CAP PO SCH ×2 (08:14→13:28)
--- NOTE | 2020-10-27 14:55 | Hospitalist Progress Note ---
Date of Service October 27, 2020 Assessment & Plan (1) Alcohol withdrawal: Patient with significant alcohol withdrawal able to reduce librium and continue gabapentin protocol, Ativan as needed. I did have a discussion with the patient and he said if he can continue to drink he does not make lots of sense to detox him as he just returned to drinking any did voice a desire to stop using alcohol an complaints of leg tightness mild swelling, negative dvt on doppler, is on heparin (2) Abnormal LFTs: improving Acute versus chronic alcoholic hepatitis versus fatty liver. (3) Pancreatitis, alcoholic, acute: lipase remains elevated finally now coming down, us pancreas is unremarkable for inflammation or cyst, Pt does not want to be npo and accepts risks of feeding with pancreatitis, will agree to clear liquids if continues to improve will have diet on 10/28 (4) Conjunctivitis of left eye: Significant left eye conjunctivitis is significant concern for corneal ulceration, the patient will be placed on gatifloxacin and vancomycin He will definitely need ophthalmological follow-up in the future (5) Leg pain: negative dopplers continues on heparin Admission and Anticipated Discharge Date Admission Date: October 24, 2020 Subjective Patient now with better symptom control will reduce scheduled Librium continung taper of gabapentin dose. He was having significant conjunctivitis but is improving with antibiotic drops, pt now tells us he does wear contact lenses pt has no abdominal pain complaints to go with his elevated lipase, no worsening of any symptoms with liquid diet lipase improving if continues will advance diet Review of Systems Review of Systems: Mild distress and fatigue no headache, does, continues with blurry vision out of his left eye no speech or swallowing issues no chest pain, pressure or palpitations no shortness of breath, cough or wheezes NO abdominal pain, nausea or vomiting, diarrhea or constipation no dysuria, hematuria or frequency no focal joint pain or swelling no back pain, CVA tenderness or radicular pain no bruising, bleeding or rashes no focal signs of weakness or numbness is of some altered sensation likely from his sedation medications Has bouts of anxiety when not sedated Physical Exam Physical Exam: The patient appeared well developed Vital signs as documented. Left conjunctiva with improving erythema, a linear 1 x 3 mm abnormality in the upper third of the cornea Lungs are clear but diminished appear unlabored Cardiac exam, tachycardic at times.. No murmurs, rubs or gallops. Abdominal exam reveals normal bowel sounds, soft no real tenderness Extremities are nonedematous and both pedal pulses are normal. Neurologic exam is sedated but able to speak although altered Skin is without bruises or rashes Psychologically is without concerns for substance abuse Results & Data Results & Data ([facility]) Vital Signs (Past 12 Hours) Vital Signs Temp Pulse Resp BP BP Pulse Ox 10/27/20 11:06 99.0 F 99 H 18 108/75 99 10/27/20 07:41 98.2 F 90 20 126/86 97 10/27/20 03:32 98.8 F 95 H 18 111/75 98 PG Care Time/CCT Total # of Minutes Spent Total Time Spent with Patient: Total time spent is greater than 50% in coordination of care (as documented) at patient's floor/unit and/or counseling patient: Coding Level of Care Code 98078 Subseq Hosp Care Lvl 3 Diagnoses Alcohol withdrawal F10.231 Complication of substance-induced condition: with delirium Abnormal LFTs R94.5 Pancreatitis, alcoholic, acute K85.20 Acute pancreatitis complication: no infection or necrosis Conjunctivitis of left eye H10.32 Acute conjunctivitis type: bacterial Conjunctivitis type: acute Leg pain M79.606 (1) Alcohol withdrawal Complication of substance-induced condition: with delirium Qualified Code(s): F10.231 - Alcohol dependence with withdrawal delirium (2) Pancreatitis, alcoholic, acute Acute pancreatitis complication: no infection or necrosis Qualified Code(s): K85.20 - Alcohol induced acute pancreatitis without necrosis or infection (3) Conjunctivitis of left eye Acute conjunctivitis type: bacterial Conjunctivitis type: acute Qualified Code(s): H10.32 - Unspecified acute conjunctivitis, left eye
[2020-10-27] MEDS ORDERED: GABAPENTIN 600 MG TAB PO SCH (18:00)
[2020-10-27] MEDS: NAPHAZOLIN/PHENIRAMIN OPH SOLN 75 DROPS/5 ML BTL OP PRN (18:25)
[2020-10-28] MEDS: VANCOMYCIN 25MG/ML FORTIFIED OPH DROPS OP SCH ×7 (01:24→11:15)
[2020-10-28] MEDS: NAPHAZOLIN/PHENIRAMIN OPH SOLN 75 DROPS/5 ML BTL OP PRN ×2 (01:27→06:12)
[2020-10-28] MEDS: GATIFLOXACIN 0.5% OP SOLN 2.5 ML BTL OP SCH ×5 (04:41→10:11)
[2020-10-28 08:30] LABS: Albumin Level 3.2 gm/dl (3.4-5.0); BUN Creatinine Ratio 4.7 (10-20); Creatinine Clr Calc Pharmacy 146.7 ml/min; Est GFR (African American) 145.2; Est GFR (Non-African American) 125.3; Potassium 3.5 mmol/L (3.5-5.1)
[2020-10-28 08:33] LABS: Albumin Globulin Ratio 0.9 (0.9-2); Bilirubin,Total 0.9 mg/dl (0.2-1); Globulin 3.5 gm/dl (2.5-4.0); Total Protein 6.7 gm/dl (6.4-8.2)
[2020-10-28] MEDS: HEPARIN SOD 5,000 UNIT/0.5 ML VIAL SQ SCH (09:09)
[2020-10-28] MEDS: FOLIC ACID 1 MG TAB PO SCH (09:09)
[2020-10-28] MEDS: NEPHROCAPS PO SCH (09:09)
[2020-10-28] MEDS: THIAMINE HCL 100 MG TAB PO SCH (09:09)
--- NOTE | 2020-10-28 14:01 | Discharge Summary ---
Date of Service October 28, 2020 Admission HPI Per Admitting Provider The patient is a 35-year-old male with a past medical history of alcohol dependency, who decided 3 days ago he would try to quit drinking alcohol on his own at home. He has been developing progressively worsening tremors, anxiety, palpitations and became concerned today, calling EMS, who brought him to the ED for further assessment. When he was reportedly found by EMS, he was having significant tremors, and was given Ativan 1 mg IM by command prior to arrival. Principal Diagnosis Alcohol withdrawal and detox Alcoholic hepatitis Left eye conjunctivitis Discharge Exam the patient appeared well patient was able to ambulate with physical therapy Vital signs as documented. Left eye conjunctivitis is markedly improved much less erythema still with likely small ulceration on his left cornea Lungs are clear to auscultation and appear unlabored Cardiac exam, Rhythm is regular.. No murmurs, rubs or gallops. Abdominal exam reveals normal bowel sounds, soft non tender, no masses Extremities are nonedematous and both pedal pulses are normal. Neurologic exam is alert and oriented, no focal loss of strength or sensation Skin is without bruises or rashes Psychologically is without concerns for anxiety or depression. Discharge Data Allergies Allergy/AdvReac Type Severity Reaction Status Date / Time No Known Allergies Allergy Mild Unverified 10/24/20 01:37 Consultations 10/24/20 02:21 ED Decision to Admit Stat Ordered Studies 10/24/20 01:11 CT head/brain wo con Urgent 10/26/20 11:12 US pancreas Routine 10/26/20 16:52 US venous doppler LE Routine Hospital Course (1) Alcohol withdrawal: Patient with significant alcohol withdrawal did complete most of librium and completed gabapentin protocol, Patient given counseling on alcohol cessation. He was given numbers for outpatient AA and other treatments. Given short course of Librium to complete his taper at home Patient encouraged to take a multiple vitamin and to complete abstain from alcohol I did have a discussion with the patient and he said if he can continue to drink he does not make lots of sense to detox him as he just returned to drinking any did voice a desire to stop using alcohol complaints of leg tightness mild swelling, negative dvt on doppler, is on heparin (2) Abnormal LFTs: improving Acute versus chronic alcoholic hepatitis versus fatty liver. (3) Pancreatitis, alcoholic, acute: Although the patient had elevated lipase during his hospital stay he never had any abdominal complaints or problems. Abdominal ultrasound did not show any pseudocyst or pancreatic inflammation. He was able to tolerate a normal diet before discharge (4) Conjunctivitis of left eye: Significant left eye conjunctivitis is significant concern for corneal ulceration, the patient will be placed on gatifloxacin and vancomycin he was given these drops at discharge and told to follow-up with Dr. Chadwick (5) Leg pain: negative dopplers Total Time Total Time Spent Total Time Spent (In Minutes): It required greater than 30 minutes to prepare this patient for discharge Discharge Plan Discharge Items Patient Disposition: Home - Self-Care Reason For Visit: ALCOHOL WITHDRAWAL Discharge Diagnosis: alcohol withdrawal conjunctivitis Activity: Resume your previous activity Non-emergency contact: Primary Care Provider Call non-emergency contact if: you have any medication questions Follow-up/Referrals: Bereket Baugh DO [Physician] - PCP,NO [Primary Care Provider] - Diet: Regular Addtl Attending Provider Instructions: please do not drink alcohol please follow up with primary care in one week take a multiple vitamin a day please use eye drops given you alternate using one each hour, while you are awake please follow up with dr Chadwick Pending Studies at Discharge: No Stand-Alone Forms: Monetate, Smoking Cessation Medications and DC Order Prescriptions: New vancomycin 500 mg Recon Soln 1 drp ophthalmic (eye) Q2H Qty: 1 RF: 0 chlordiazepoxide HCl 10 mg Capsule 10 mg PO UD Qty: 10 RF: 0 gatifloxacin 0.5 % Drops 1 drp ophthalmic (eye) Q2H Qty: 2.5 RF: 0 Discharge Orders: Discharge Order (Routine); Ordered 10/28/20 Ordered By: Obed Urena Admission Data Admit Date/Time: 10/24/20 02:41 Attending Provider: Obed Urena Admit Provider: Cesar Anderson Primary Care Provider: PCP,NO Other Providers: Cesar Anderson Other Interventions: Discharge Summary Assessment (RN) Last Done: 10/28/20 11:21 Coding Level of Care Code D/C Day Management >30 mins Diagnoses Alcohol withdrawal F10.231 Complication of substance-induced condition: with delirium Abnormal LFTs R94.5 Pancreatitis, alcoholic, acute K85.20 Acute pancreatitis complication: no infection or necrosis Conjunctivitis of left eye H10.32 Acute conjunctivitis type: bacterial Conjunctivitis type: acute Leg pain M79.606
--- NOTE | 2020-11-07 06:52 | Coding Query ---
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 Please assist us with the question(s) below: Coding Question(s): Per progress notes and discharge summary, Acute Alcoholic Pancreatitis is documented with "Although the patient had elevated lipase during his hospital stay he never had any abdominal complaints or problems. Abdominal ultrasound did not show any pseudocyst or pancreatic inflammation. He was able to tolerate a normal diet before discharge." This condition was not Ruled Out. Please clarify condition below: (xx ) Patient with Acute Alcoholic Pancreatitis ( ) Acute Alcoholic Pancreatitis Ruled Out ( ) Other Please Explain: Thank you Jony Perez Principal Diagnosis: "that condition established after study, to be chiefly responsible for occasioning the admission of the patient to the hospital for care." Co-Existing Principal Diagnosis: "when two or more diagnoses equally meet the criteria for principal diagnosis as determined by the circumstances of admission, diagnostic work up, and/or therapy provided, and the Alphabetic Index, Tabular List, or another coding guideline does not provide sequencing direction, any one of the diagnoses may be sequenced first." "When the physician has documented what appears to be a current diagnosis in the body of the record, but has not included the diagnosis in the final diagnostic statement, the physician should be asked whether the diagnosis should be added." (Source [facility]oding [facility] 2 QTR90. p3-4) ANCA
== END 2020-10-28 13:05 | disposition home or self-care (01) | DRG 896 ==
LOC: ED 00:58 → SUATTDRO 02:41 → 2W 02:41